=== PATIENT | male | born 1955 | race Caucasian/White ===

== ENCOUNTER 2019-03-18 08:23 | Inpatient (IN) | payer BC ==
[2019-03-12 11:51] LABS: BASOPHILS % (AUTO) 0.6 % (0-1); EOSINOPHILS % (AUTO) 0.9 % (0-6); LYMPHOCYTES # (AUTO) 1.1 X10'3 (1.1-4.8); LYMPHOCYTES % (AUTO) 21.3 % (21-51); MEAN CORPUSCULAR HEMOGLOBIN 34.3 PG (27.0-31.0); MEAN CORPUSCULAR HGB CONC 34.7 g/dL (33.0-36.5); MEAN CORPUSCULAR VOLUME 98.8 FL (78-98); MONOCYTES # (AUTO) 0.7 X10'3 (0-0.9); MONOCYTES % (AUTO) 12.9 % (2-12); NEUTROPHILS # (AUTO) 3.2 X10'3 (1.8-7.7); NEUTROPHILS % (AUTO) 64.3 % (42-75); PRE OP HEMATOCRIT 53.6 % (42.0-52.0); PRE OP PLATELET COUNT 215 X10'3 (140-440); RED BLOOD COUNT 5.42 X10'6 (4.70-6.10); RED CELL DISTRIBUTION WIDTH 12.7 % (11.5-14.5)
[2019-03-12 11:53] LABS: ALKALINE PHOSPHATASE 58 IU/L (46-116); BLOOD UREA NITROGEN 17 MG/DL (7-18); BUN/CREATININE RATIO 14.8 (5.4-32.0); CALCIUM 9.3 MG/DL (8.5-10.1); CHLORIDE 98 MMOL/L (99-107); CREATININE 1.15 MG/DL (0.60-1.10); PRE OP ALT 41 U/L (30-65); PRE OP ANION GAP 7 (8-16); PRE OP AST 25 U/L (10-37); PRE OP BILIRUB, TOTAL 1.3 MG/DL (0.0-1.0); PRE OP GLUCOSE 112 MG/DL (70-104); PRE OP POTASSIUM 3.9 MMOL/L (3.4-5.1); PRE OP SODIUM 135 MMOL/L (135-145); TOTAL CARBON DIOXIDE 29.8 MMOL/L (24-32); TOTAL PROTEIN 7.9 G/DL (6.4-8.2); eGFR 65 ML/MIN
[2019-03-12 11:59] LABS: PRE OP HEMOGLOBIN 18.6 g/dL (14.0-17.9)
[2019-03-18] VITALS (16 sets, daily range): BP systolic 119–159; BP diastolic 71–90
[~2019-03-18] VITALS: Ht 182.9 cm; Wt 115.0 kg
[~2019-03-18 08:23] MED LIST: LISI1TAB28 PO; cefazolin/dext.iso 2gm/50ml 50 ML IV ONE; famotidine 20mg tablet PO ONE; ringers solution, lacted 1,000 ML IV SCH; tranexamic acid inj. 1,000 MG in normal saline 100 ML IV ONE; vancomycin inj 1,500 MG in normal saline 300ml IV soln IV ONE
[2019-03-18] MEDS ORDERED: ringers solution, lacted 1,000 ML IV SCH (11:31)
[2019-03-18] MEDS ORDERED: tetracaine 1% (10mg/ml) pres. free inj. ONE (11:34)
[2019-03-18] MEDS ORDERED: hydrALAZINE 20mg/ml inj. IV PRN (11:35)
[2019-03-18] MEDS ORDERED: ondansetron/PF 4mg/2ml inj IV PRN ×3 (11:35→15:15)
[2019-03-18] MEDS ORDERED: fentaNYL/PF 50MCG/1 ML 2ML syringe IV PRN ×2 (11:35)
[2019-03-18] MEDS ORDERED: labetalol 20mg/4ml (5mg/ml) syringe IV PRN (11:35)
[2019-03-18] MEDS ORDERED: morphine 4 MG/ML inj SYRINge IV PRN ×2 (11:35)
[2019-03-18] MEDS ORDERED: vancomycin 1,000mg inj ONE (11:45)
[2019-03-18] MEDS ORDERED: ceFAZolin 1000mg inj ONE (11:45)
[2019-03-18] MEDS ORDERED: epiNEPHrine 1 mg/ml inj ONE (11:54)
[2019-03-18] MEDS ORDERED: ketorolac trometh. 30mg/ml inj. ONE (11:54)
[2019-03-18] MEDS ORDERED: ROPIVAcaine 0.5% (5mg/ml) 30ml vial ONE ×2 (11:55→14:24)
[2019-03-18] MEDS ORDERED: morphine 10mg/ml inj. ONE (11:55)
[2019-03-18] MEDS ORDERED: fentaNYL/PF 50MCG/1 ML 2ML syringe ONE (12:49)
[2019-03-18] MEDS ORDERED: morphine /PF 1mg/ml 10ml inj. ONE (12:49)
[2019-03-18] MEDS ORDERED: MIDAZolam 1mg/ml 10ml vial ONE (12:49)
[2019-03-18] MEDS ORDERED: mineral oil 10ml sterile, topical TP ONE (13:06)
[2019-03-18] MEDS ORDERED: propofol inj 20 ML IV ONE (13:16)
[2019-03-18] MEDS ORDERED: LIDOcaine 2% (20mg/ml) 5ml vial ONE (13:16)
[2019-03-18] MEDS ORDERED: diphenhydrAMINE 50 mg/ml inj IV PRN (13:35)
[2019-03-18] MEDS ORDERED: calcium chloride 100 MG/1 ML inj IV ONE ×2 (14:18→14:19)
[2019-03-18] MEDS ORDERED: Thrombin (Bovine) 5,000 unit vial TP ONE (14:18)
[2019-03-18] MEDS ORDERED: oxyCODONE IR 5mg (immed. release) tablet PO PRN (15:15)
[2019-03-18] MEDS ORDERED: bisacodyl 10mg suppository rectal RC PRN (15:15)
[2019-03-18] MEDS ORDERED: diphenhydrAMINE 25mg capsule PO PRN ×2 (15:15)
[2019-03-18] MEDS ORDERED: HYDROmorphone 1 mg/ml syringe IV PRN (15:15)
[2019-03-18] MEDS ORDERED: acetaminophen 325mg tablet PO PRN (15:15)
[2019-03-18] MEDS ORDERED: tranexamic acid inj. 1,150 MG in normal saline 100ml IV soln 100 ML IV ONE (15:15)
[2019-03-18] MEDS ORDERED: HYDROmorphone inj. 0.5 MG/0.5 ML DISP.SYRIN IV PRN (15:15)
[2019-03-18] MEDS ORDERED: magnesium hydroxide 30ml (MOM) UD suspension PO PRN (15:15)
[2019-03-18] MEDS ORDERED: labetalol 20mg/4ml (5mg/ml) syringe IV ONE (15:50)
--- NOTE | 2019-03-18 15:55 | NUR ---
Received from OR via ortho bed, accompanied by Anesthesiologist Rosa and report given by Anesthesiolgist. Pt alert and responsive, VS stable, mask to 10L and sats 98%. Pulses palpable to dorsalis pedis on both feet. Marcia dressing with ON-Q line present, leg wrap and cool pack present to right knee. 20G left forearm IV present with IVF LR at 100cc/hr. SCDs on, morrison catheter in place draining clear yellow urine. L1 sensation with spinal block.
--- NOTE | 2019-03-18 15:56 | NUR ---
Sensation felt down to L1 and otherwise no sensation or ability to move lower right extremity.
--- NOTE | 2019-03-18 16:32 | NUR ---
Patient in room PAS IN 901. I have received report from Mary KEYS and had the opportunity to ask questions and assume patient care.
[2019-03-18] MEDS: ROPIVAcaine 0.2%/PF PAIN PUMP 550 ML ADDCANAL SCH ×2 (16:37→18:30)
--- NOTE | 2019-03-18 16:45 | NUR ---
Report called to receiving nurse. Transferred via ortho bed. Belongings sent with patient on bedside. Special Issues communicated to receiving nurse Abigail RN who was at bedside. Pt alert and responsive, at bedside. First set of post op VS stable. Call light within reach, BLL. Pulses remain palpable bilaterally.
[2019-03-18] MEDS: potassium cl 20mEq in 1/2 NS 1,000 ML IV SCH ×2 (17:20→23:15)
--- NOTE | 2019-03-18 18:16 | NUR ---
Patient report given to Rohit KEYS
[2019-03-18] MEDS: ceFAZolin 1GM/D5W- ADD-VANTAGE 50 ML IV SCH ×2 (19:52→23:46)
[2019-03-18] MEDS: acetaminophen 325mg tablet PO SCH (19:58)
[2019-03-18] MEDS ORDERED: vancomycin/NS 1 GM ADD-VANTAGE 250 ML IV SCH (20:00)
[2019-03-18] MEDS ORDERED: sennosides 8.6mg tablet PO SCH (21:00)
[2019-03-18] MEDS: gabapentin 300mg capsule PO SCH (21:47)
[2019-03-19] MEDS: acetaminophen 325mg tablet PO SCH ×3 (02:01→15:24)
[2019-03-19 02:14] VITALS: BP 112/74
[2019-03-19] MEDS: oxyCODONE IR 5mg (immed. release) tablet PO PRN ×2 (05:20→15:24)
[2019-03-19 06:00] VITALS: BP 117/70
--- NOTE | 2019-03-19 06:26 | NUR ---
reported to days. noted pt eager for PT.
[2019-03-19 06:29] LABS: BASOPHILS % (AUTO) 0.3 % (0-1); EOSINOPHILS % (AUTO) 0.4 % (0-6); HEMATOCRIT 44.4 % (42.0-52.0); HEMOGLOBIN 15.5 g/dl (14.0-17.9); LYMPHOCYTES # (AUTO) 1.1 X10'3 (1.1-4.8); LYMPHOCYTES % (AUTO) 12.1 % (21-51); MEAN CORPUSCULAR VOLUME 100.2 FL (78-98); MEAN PLATELET VOLUME 7.7 FL (7.4-10.4); MONOCYTES % (AUTO) 10.2 % (2-12); NEUTROPHILS # (AUTO) 7.2 X10'3 (1.8-7.7); PLATELET COUNT 197 X10'3 (140-440); RED BLOOD COUNT 4.43 X10'6 (4.70-6.10); RED CELL DISTRIBUTION WIDTH 12.8 % (11.5-14.5); WHITE BLOOD COUNT 9.4 X10'3 (4.5-11.0)
[2019-03-19] MEDS: potassium cl 20mEq in 1/2 NS 1,000 ML IV SCH ×2 (06:57→15:15)
[2019-03-19 07:09] LABS: ANION GAP 9 (8-16); CHLORIDE 102 MMOL/L (99-107); POTASSIUM 4.2 MMOL/L (3.5-5.1); SODIUM 138 MMOL/L (135-145); TOTAL CARBON DIOXIDE 27.3 MMOL/L (24-32)
[2019-03-19] MEDS: gabapentin 300mg capsule PO SCH ×2 (07:31→15:23)
[2019-03-19] MEDS ORDERED: enoxaparin 40mg/0.4ml syringe SQ SCH (08:00)
[2019-03-19 10:00] VITALS: BP 118/71
[2019-03-19] MEDS ORDERED: WALKERFR (10:54)
--- NOTE | 2019-03-19 11:49 | NUR ---
Joint replacement consult: Pt seen by GARTH for written/verbal high protein ed w/ RD contact information provided. Pt d/c today but agrees to double proteins at lunch; dietary notified. Addendum: 03/19/19 at [address] Amended: Links added.
[2019-03-19 13:30] VITALS: BP 136/70
[2019-03-19] MEDS ORDERED: celeCOXIB 100mg capsule PO SCH (20:00)
[2019-03-20] MEDS ORDERED: acetaminophen 325mg tablet PO PRN (15:15)
== END 2019-03-19 15:55 | disposition home health service (06) | DRG 470 ==
LOC: PAS IN 08:23 → EDSTATUS 12:30 → ORTHO 4S 16:15
PROVIDERS: ADMIT Orthopaedic Surgery; ATTEND Orthopaedic Surgery
PROC: 8E0YXCZ Robotic Assisted Procedure of Lower Extremity (ICD-10-PCS; 2019-03-18)
PROC: 3E0T3BZ Introduction of Anesthetic Agent into Peripheral Nerves and Plexi, Percutaneous Approach (ICD-10-PCS; 2019-03-18)
PROC: 0SRC069 Replacement of Right Knee Joint with Oxidized Zirconium on Polyethylene Synthetic Substitute, Cemented, Open Approach (ICD-10-PCS; principal; 2019-03-18 12:48)
DX: M17.11 Unilateral primary osteoarthritis, right knee (principal); I10 Essential (primary) hypertension; M81.0 Age-related osteoporosis without current pathological fracture; Z79.899 Other long term (current) drug therapy
CPT/HCPCS: Z7506; Z7508; 36415; 80051; 80053; 82948; 85025; 87081; 93005; 97110; 97116; 97161; 97530; A4215; A6454; A7000; C1713; C1758; C1776; G0378; J0171; J0690; J1170; J1650; J1885; J2001; J2250; J2270; J2704; J2795; J3010; J3370; J3480; J3490; J7120